=== PATIENT | female | born 1955 | race Caucasian/White ===

== ENCOUNTER 2019-05-13 15:30 | Outpatient (CLI) | payer BC, SELFPAY ==
--- NOTE | ~2019-05-13 | MR_ITS ---
EXAMINATION: MR brain/brain stem wo con EXAM DATE: 05/13/2019 16:21 INDICATION: Migraine headaches. TECHNIQUE: Magnetic resonance imaging (MRI) of the brain/brain stem obtained without contrast. Sagitt al T1, axial diffusion, gradient echo (T2*), T1, T2, FLAIR sequences obtained. There is no prior st udy for comparison. FINDINGS: There are no areas of restricted diffusion to suggest acute infarction. There is no acute hemorrhage seen on the T2*, a hemosiderin sensitive sequence. No intraparenchymal brain mass. The ve ntricles are normal in size. There are no extra-axial collections. Flow voids are seen in the cereb ral arteries on the T2-weighted sequences consistent with their expected patency. The orbits are unr emarkable. Soft tissue is unremarkable. IMPRESSION: 1. Normal brain MRI examination. Reviewed, dictated and finalized at location B. EL LINER
== END 2019-05-13 15:31 | disposition home or self-care (01) ==
PROVIDERS: PCP Family Medicine; Visit Provider Psychiatry & Neurology Neurology
DX: G43.909 Migraine, unspecified, not intractable, without status migrainosus (principal)
CPT/HCPCS: 70551

== ENCOUNTER 2019-07-22 08:56 | Outpatient (CLI) | payer BC, SELFPAY ==
--- NOTE | 2019-07-22 10:15 | NEURO_ITS ---
Patient Number: [id number] Impression: # Complains of lower extremity weakness. # Normal nerve conduction study including F-waves. # Normal needle/EMG exam. # Clinical correlation recommended. Nerve Conduction Studies Anti Sensory Summary Table Stim Site NR Peak (ms) P-T Amp (?V) Site1 Site2 Delta-P (ms) Dist (cm) Emigdio (m/s) Left Sup Fibular Anti Sensory (Ant Lat Mall) 14 cm 3.0 9.6 14 cm Ant Lat Mall 3.0 16.0 53 Right Sup Fibular Anti Sensory (Ant Lat Mall) 14 cm 4.0 6.5 14 cm Ant Lat Mall 4.0 16.0 40 Left Sural Anti Sensory (Lat Mall) Calf 3.8 7.0 Calf Lat Mall 3.8 16.0 42 Right Sural Anti Sensory (Lat Mall) Calf 3.5 9.8 Calf Lat Mall 3.5 16.0 46 Motor Summary Table Stim Site NR Onset (ms) O-P Amp (mV) Site1 Site2 Delta-0 (ms) Dist (cm) Emigdio (m/s) Left Peroneal Motor (Vastus Med) Ankle 5.0 1.6 Popit Ankle 7.9 36.0 46 Popit 12.9 1.4 Right Peroneal Motor (Vastus Med) Ankle 5.0 1.4 Popit Ankle 7.5 33.0 44 Popit 12.5 1.4 Left Tibial Motor (Abd Allan Brev) Ankle 5.2 8.8 Knee Ankle 8.2 39.0 48 Knee 13.4 5.0 Right Tibial Motor (Abd Allan Brev) Ankle 5.4 6.2 Knee Ankle 8.7 38.0 44 Knee 14.1 3.6 F Wave Studies NR F-Lat (ms) L-R F-Lat (ms) Left Peroneal (Mrkrs) (EDB) 52.04 0.76 Right Peroneal (Mrkrs) (EDB) 51.29 0.76 Left Tibial (Mrkrs) (Abd Hallucis) 52.86 1.01 Right Tibial (Mrkrs) (Abd Hallucis) 51.85 1.01 EMG Side Muscle Nerve Root Ins Act Fibs Amp Dur Recrt Comment Right AntTibialis Dp Br Fibular L4-5 Nml Nml Nml Nml Nml Right Gastroc Tibial S1-2 Nml Nml Nml Nml Nml Right Fibularis Long Sup Br Fibular L5-S1 Nml Nml Nml Nml Nml Right Flex Dig Long Tibial L5-S2 Nml Nml Nml Nml Nml Right Ext Dig Brev Dp Br Fibular L5, S1 Nml Nml Nml Nml Nml Left AntTibialis Dp Br Fibular L4-5 Nml Nml Nml Nml Nml Left Gastroc Tibial S1-2 Nml Nml Nml Nml Nml Left Fibularis Long Sup Br Fibular L5-S1 Nml Nml Nml Nml Nml Left Flex Dig Long Tibial L5-S2 Nml Nml Nml Nml Nml Left Ext Dig Brev Dp Br Fibular L5, S1 Nml Nml Nml Nml Nml Right QuadratusFem QuadFemoris L4-5, S1 Nml Nml Nml Nml Nml Left QuadratusFem QuadFemoris L4-5, S1 Nml Nml Nml Nml Nml MTDD
== END 2019-07-22 08:57 | disposition home or self-care (01) ==
PROVIDERS: PCP Family Medicine; Visit Provider Psychiatry & Neurology Neurology
DX: R53.1 Weakness (principal)
CPT/HCPCS: 95886; 95910

== ENCOUNTER 2019-12-14 12:27 | Outpatient (CLI) | payer BC, SELFPAY ==
--- NOTE | 2019-12-15 10:28 | WPDNEUROLOGY ---
Neurology EEG Report General Information Date of Study: 12/14/19 TEST EEG DIAGNOSIS Aphasia CONDITION OF RECORDING awake and drowsy and asleep EEG NUMBER [id number] CLINICAL HISTORY patient reported that she has periods of not being able to speak the correct words gets them jumbled up EEG DESCRIPTION basic resting occipital frequency consists of low to medium voltage 8 to 10 hertz per 2nd alpha admixed with low-voltage 15 to 18 hertz per 2nd beta. During drowsiness low-voltage beta activity seen diffusely admixed with waxing and waning alpha activity posteriorly. Bilateral symmetrical sleep spindles are seen during sleep photic stimulation produced normal drive hyperventilation not done non paroxysmal. Nonfocal. Nonlateralizing. IMPRESSION Normal record during wakefulness drowsiness and sleep
== END 2019-12-14 12:28 | disposition home or self-care (01) ==
PROVIDERS: PCP Family Medicine; Visit Provider Psychiatry & Neurology Neurology
DX: R42 Dizziness and giddiness (principal)
CPT/HCPCS: 95816

== ENCOUNTER 2020-10-13 12:01 | Emergency (ER) | payer BC, SELFPAY ==
--- NOTE | ~2020-10-13 | XR_ITS ---
EXAMINATION: XR chest 1V portable EXAM DATE: 10/13/2020 13:08 INDICATION: Cough, COVID positive. Weakness and fatigue. TECHNIQUE: Portable AP frontal chest x-ray was obtained. Comparison is made to prior examination from 11/03/2012. FINDINGS: Small amount of ill-defined airspace disease in the left midlung zone and right lower lung zone. No pneumothorax or pleural effusion. Cardiomediastinal silhouette is normal. Breast implants wi th some capsular calcification, retraction. There are no osseous abnormalities identified. IMPRESSION: Suspect developing small amount of bilateral acute airspace disease. Reviewed, dictated and finalized at location A. IMPRESSION: Suspect developing small amount of bilateral acute airspace disease .
[2020-10-13 12:12] VITALS: BP 132/69; PULSE 87; RESP 22; TEMP 36.8; O2SAT 98
--- NOTE | 2020-10-13 12:15 | ECG_ITS ---
Measurements Intervals [place] Rate: 84 P: 32 IL: 116 QRS: -19 QRSD: 94 T: 10 QT: 364 QTc: 433 Interpretive Statements SINUS RHYTHM WITH SHORT [place] INTERVAL DELAYED PRECORDIAL R/S TRANSITION BORDERLINE ST-T WAVE ABNORMALITY- INFERIOR LEADS BASELINE ARTIFACT- V1, V4-V5 BORDERLINE ECG Electronically Signed On 10-13-2020 15:20:47 CDT by Jeremiah Betancourt D.O.
[2020-10-13 13:28] VITALS: BP 128/62; PULSE 70; RESP 16; O2SAT 100
[2020-10-13 13:33] LABS: Basophils Percent Auto 0.2 % (0.2-1.2); Hematocrit 36.4 % (37.0-47.0); Hemoglobin 12.3 g/dL (12.0-15.0); Immature Granulocyte Absolute 0.01 K/mm3 (0.00-0.031); Immature Granulocyte Percent A 0.2 % (0-0.5); Lymphocytes Percent Auto 16.9 % (18.3-44.2); Mean Corpuscular HGB Conc 33.8 g/dl (32-36); Mean Corpuscular Hemoglobin 28.6 pg (26-34); Mean Corpuscular Volume 84.7 fl (80-100); Mean Platelet Volume 10.5 fl (7.4-10.4); Monocytes Absolute Auto 0.4 K/mm3 (0.1-0.6); Monocytes Percent Auto 8.2 % (2.6-8.5); Neutrophils Absolute Auto 3.5 K/mm3 (1.3-6.7); Neutrophils Percent Auto 74.5 % (45.5-73.1); Platelet Count Result 238 k/mm3 (150-375); Red Cell Distribution Width 13.7 % (11.5-14.5); White Blood Count 4.7 K/mm3 (4.5-10.0)
[2020-10-13 13:54] LABS: Alanine Aminotransferase 14 U/L (4-35); Albumin Level 4.1 g/dL (3.5-5.1); Alkaline Phosphatase 53 U/L (38-126); Anion Gap 10 mmol/L (8-16); Aspartate Amino Transferase 32 U/L (14-36); Blood Urea Nitrogen 11 mg/dL (7-17); Calcium 8.9 mg/dL (8.4-10.2); Carbon Dioxide 24 mmol/L (22-30); Chloride 101 mmol/L (98-107); Estimated CRCL calculation 67 ml/min; Estimated Glomerular Filt Rate > 60; Glucose 93 mg/dL (65-105); Lactate Dehydrogenase 680 U/L (313-618); Potassium 3.8 mmol/L (3.4-5.0); Sodium 135 mmol/L (137-145)
[2020-10-13 13:56] LABS: Troponin I < 0.012 ng/mL (0.000-0.034)
[2020-10-13 14:24] LABS: Add Urine Microscopic? YES; Appearance Urine Cloudy (Clear); Bacteria Urine Trace /hpf; Bilirubin Urine Negative (Negative); Blood Urine Negative (Negative); Color Urine Yellow (Yellow); Glucose Urine UA Negative (Negative); Ketones Urine 1+ mg/dL (Negative); Leukocyte Esterase Ur 3+ LEU/UL (Negative); Mucus Urine Rare /lpf; Nitrate Urine Negative (Negative); Protein Urine 1+ mg/dL (Negative); Specific Grav Ur 1.023 (1.001-1.035); Squamous Epithelial Cell Urine Few /hpf (Few)
--- NOTE | 2020-10-13 14:24 | ED.WEAKNESS ---
HPI - Weakness General Chief complaint: Anxiety Stated complaint: Covid + today,N/V/SOB Time Seen by Provider: 10/13/20 12:21 Source: patient Mode of arrival: ambulatory Limitations: no limitations History of Present Illness HPI Narrative: 65-year-old female No Covid vaccination Recently visited relatives in [place] and after returning home heard that someone had tested Covid positive For about 10 days she has been moderately ill with generalized weakness poor appetite loss of taste and smell chronic nonproductive cough some nausea She went to an urgent care today and we do not have the records but they thought she should be evaluated in the ED Related Data Home Medications Medication Instructions Recorded Confirmed escitalopram oxalate [Lexapro] 10 mg PO DAILY 10/13/20 Allergies Allergy/AdvReac Type Severity Reaction Status Date / Time amoxicillin Allergy Unknown Hives Verified 10/13/20 12:19 ciprofloxacin Allergy Unknown Hives Verified 10/13/20 12:19 clavulanic acid Allergy Unknown Hives Verified 10/13/20 12:19 Review of Systems Review of Systems: All systems reviewed & are unremarkable except as noted in HPI and below Constitutional: Constitutional: Reports no additional constitutional complaints, Reports chills, Reports fatigue, Reports fever(s), Denies headache(s) and Reports weakness Eyes: Eyes: Reports no additional eye complaints and Denies change in vision ENT: Denies headache(s) and Denies sore throat Cardiovascular: Cardiovascular: Denies chest pain and Denies dyspnea Respiratory: Respiratory: Reports cough and Reports dyspnea Gastrointestinal: Gastrointestinal: Denies abdominal pain, Denies diarrhea, Reports nausea and Reports vomiting Genitourinary: Genitourinary: Denies urinary frequency and Denies dysuria Musculoskeletal: Musculoskeletal: Reports myalgias, Denies deformity, Denies arthralgias, Denies joint swelling and Denies numbness Integumentary/Breasts: Skin/Breast: Denies rash and Denies wounds Neurologic: Denies headache(s), Denies focal weakness and Denies numbness Psychiatric: Psychiatric: Reports no additional psychiatric complaints Endocrine: Endocrine: Reports no additional endocrine complaints Hematologic/Lymphatic: Hematologic/Lymphatic: Reports no additional hematologic/lymphatic complaints Allergic/Immunologic: Allergic/Immunologic: Reports no additional allergic/immunologic complaints Exam Const: General: cooperative, no acute distress and alert Orientation/consciousness: patient oriented x3 (alert) HENMT: Head: normal to inspection, normocephalic and atraumatic Ears: external ears normal General nose exam: no epistaxis Eyes: Conjunctivae: conjunctivae normal EOM: EOMs intact bilaterally Neck: Neck: normal visual inspection, supple and no JVD Resp: Effort & Inspection: normal respiratory effort and not labored Auscultation: clear to auscultation bilaterally, no rales, no rhonchi, no wheezes and other (BS =) Cardio: Rate: regular rate Rhythm: regular rhythm Heart sounds: no murmurs GI: GI Palp: Yes Soft to palpation and No Tenderness to palpation present (GI) Skin: General skin exam: normal color and no rashes or lesions noted Neuro: General: patient oriented x3 (alert) and moves all extremities Speech: normal speech Extrem: General: normal to inspection and no pedal edema Psych: Affect: normal affect Course Vital Signs Vital signs: Vital Signs Temperature 36.8 C 10/13/20 12:12 Pulse Rate 87 10/13/20 12:12 Respiratory Rate 22 H 10/13/20 12:12 Blood Pressure 132/69 10/13/20 12:12 Pulse Oximetry 98 10/13/20 12:12 Temperature 36.8 C 10/13/20 12:12 Pulse Rate 70 10/13/20 13:28 Respiratory Rate 16 10/13/20 13:28 Blood Pressure 128/62 10/13/20 13:28 Pulse Oximetry 100 10/13/20 13:28 MDM - Weakness Lab Data Result diagrams: 10/13/20 13:19 10/13/20 13:19 Labs: Lab Results 0
[2020-10-13 14:45] VITALS: BP 115/76; PULSE 67; RESP 18; TEMP 37; O2SAT 100
[2020-10-14 16:46] LABS: SARS-CoV-2 RNA PCR Positive
== END 2020-10-13 15:07 | disposition home or self-care (01) ==
PROVIDERS: Emergency Provider Emergency Medicine; PCP Family Medicine
DX: U07.1 COVID-19 (principal); R94.31 Abnormal electrocardiogram [ECG] [EKG]; R91.8 Other nonspecific abnormal finding of lung field
CPT/HCPCS: 36415; 71045; 80053; 81001; 82728; 83615; 84443; 84484; 85025; 87086; 87088; 93005; 99284; C9803; U0003; U0005

== ENCOUNTER 2022-11-15 13:11 | Outpatient (CLI) | payer MEDICARE, SELFPAY ==
--- NOTE | ~2022-11-15 | MMUS_ITS ---
EXAMINATION: MM diagnostic mammo implant BI, US breast BI limited HISTORY: Palpable breast lumps bilaterally. TECHNIQUE: Additional 3-D tomosynthesis images of the breasts were performed and synthetic 2-D images were generated. CAD analysis was submitted and interpreted. High resolution limited bilateral breast ultrasound was performed. COMPARISON: 09/14/2009 BREAST PARENCHYMAL COMPOSITION: Breast composed of scattered areas of fibroglandular density FINDINGS: MAMMOGRAPHIC FINDINGS: There are bilateral silicone implants which are subglandular. There is evidence for bilateral extraca psular implant rupture. No suspicious masses, calcifications or architectural distortion are identifi ed in either breast to suggest malignancy. ULTRASOUND: Limited bilateral breast ultrasound: No suspicious masses are identified in either breast to suggest malignancy. IMPRESSION: 1. No evidence for malignancy in either breast. Bilateral extracapsular implant rupture. 2. Routine yearly screening mammogram and regular clinical breast examination are recommended. BI-RADS Category 2: Benign finding(s). Reviewed, dictated and finalized at location A. IMPRESSION: 1. No evidence for malignancy in either breast. Bilateral extracapsular implant rupture. 2. Routine yearly screening mammogram and regular clinical breast examination a re recommended. BI-RADS Category 2: Benign finding(s).
== END 2022-11-15 13:12 | disposition home or self-care (01) ==
LOC: ANHIMG 13:14
PROVIDERS: PCP Family Medicine; Visit Provider Family Medicine
DX: R92.8 Other abnormal and inconclusive findings on diagnostic imaging of breast (principal)
CPT/HCPCS: 76642; 77062; 77066; G0279

== ENCOUNTER 2024-03-22 12:12 | Outpatient (CLI) | payer MEDICARE, SELFPAY ==
--- NOTE | ~2024-03-22 | DEXA_ITS ---
Bone Density Report Name: KATIE COOK Age: 69 Sex: Female Ethnicity: White Date of : 1955 Indication: postmenopausal; screening for osteoporosis; Referring Provider: WENDIE, BK Study: Bone densitometry was performed. Exam Date: March 22, 2024 Accession number: [id number] Bone Density: Region BMD T-score Z-score Classification AP Spine(L1-L4) 0.940 -1.0 0.9 Normal Femoral Neck (Left) 0.517 -3.0 -1.4 Osteoporosis Total Hip (Left) 0.668 -2.2 -0.9 Osteopenia Femoral Neck (Right) 0.585 -2.4 -0.8 Osteopenia Total Hip (Right) 0.744 -1.6 -0.3 Osteopenia Total Hip Mean 0.706 -1.9 -0.6 Osteopenia World Health Organization criteria for BMD impression classify patients as: Normal (T-score at or above -1.0), Osteopenia (T-score between -1.0 and -2.5), or Osteoporosis (T-score at or below -2.5). 10-year Fracture Risk: FRAX not reported because: Some T-score for Spine Total or Hip Total or Femoral Neck at or below -2.5 Clinical Information Provided by Patient: Smokes Has used the following medications: Vitamin D Patient maximum height was 63.5 Menopause Age: 52 Drinks caffeinated beverages Onset of menses at age 15 Number of children 3 Impression: The patient has osteoporosis, based on the Left Femoral Neck T-score. The patient has risk factors, including: smoking. Discussion: INCREASED RISK OF FRACTURE. BONE DENSITY IS UNDESIRABLY LOW AT ONE OR MORE SKELETAL SITES, CONSISTENT WITH POSTMENOPAUSAL OSTEOPOROSIS. This patient's lowest T-score meets the World Health Organization's (WHO) criteria for osteoporosis at one or more sites (T-score -2.5 or below). In untreated patients, the risk of osteoporotic fracture increases approximately two-fold for each 1.0 SD decrease in T-score. Low bone density is not the only risk factor for fracture; also consider factors such as patient's age, frailty or poor health, risk of falling, risk of injury, previous osteoporotic fracture, family history of osteoporosis, cigarette smoking, low body weight, etc. Not everyone with low bone mineral density has osteoporosis; osteomalacia and other metabolic bone disorders should also be considered. Patients who have osteoporosis should be evaluated for specific diseases and conditions (secondary causes) that may cause or contribute to bone loss. The [place] [employer]ocrinologists (AACE) and National Osteoporosis Foundation (NOF) recommend pharmacologic intervention for all postmenopausal women whose T-score is in this range. The patient should follow a healthful lifestyle (good nutrition with adequate calcium and vitamin D, and appropriate weight-bearing exercise). Follow-Up: Consider a repeat BMD and Vertebral Fracture Assessment (VFA) exam in 2 years or sooner if medically necessary, to reassess this patient's status. Reported by: GAMA on 03/22/2024 1:26:00 PM. Reviewed, dictated and finalized at location A. [facility]ONX HOSPITALMarybeth
--- NOTE | ~2024-03-22 | MM_ITS ---
EXAMINATION TYPE: MM diag chava implant BI w sonali COMPARISON: 11/15/2022 REASON FOR STUDY: Prior palpable abnormalities TECHNIQUE: Bilateral mediolateral oblique and craniocaudal views were obtained digitally with 3-D ma mmogram (digital breast tomosynthesis) with CAD. Computer-aided detection was utilized in evaluation of this examination. Implant displaced views were also attempted. This was not successful in the righ t craniocaudal view secondary to the lack of breast tissue and the extracapsular rupture. BREAST PARENCHYMAL COMPOSITION:Not Dense. There are scattered areas of fibroglandular density. FINDINGS: Stable parenchymal pattern without discrete mass, architectural distortion or significant asymmetry. The implant within the left breast demonstrates extracapsular rupture. The implant within the right breast demonstrates intracapsular rupture. IMPRESSION: No mammographic or tomographic evidence to suggest the presence of malignancy BI-RADS CATEGORY: 2: Benign findings RECOMMENDATION: Resumption of yearly screening mammography is recommended. Reviewed, dictated and finalized at location A. [employer]
== END 2024-03-22 12:13 | disposition home or self-care (01) ==
PROVIDERS: PCP Student in an Organized Health Care Education/Training Program; Visit Provider Student in an Organized Health Care Education/Training Program
DX: R92.8 Other abnormal and inconclusive findings on diagnostic imaging of breast (principal); M81.0 Age-related osteoporosis without current pathological fracture; M85.89 Other specified disorders of bone density and structure, multiple sites; E78.5 Hyperlipidemia, unspecified; F32.A Depression, unspecified; F41.1 Generalized anxiety disorder; Z78.0 Asymptomatic menopausal state; Z13.820 Encounter for screening for osteoporosis
CPT/HCPCS: 77062; 77066; 77080; G0279